=== PATIENT | female | born 1950 | race Caucasian/White ===

== ENCOUNTER 2022-04-10 13:49 | Inpatient (IN) | payer MEDICARE, OTHER ==
[~2022-04-10] VITALS: Ht 162.6 cm; Wt 64.0 kg
[2022-04-10] MEDS ORDERED: IV NS 0.9% 1,000 ML IV ONE (14:30)
--- NOTE | 2022-04-10 14:30 | NUR ---
I [phone]
--- NOTE | 2022-04-10 15:00 | NUR ---
PHLEB AT BEDSIDE FOR BLOOD DRAW
[2022-04-10 15:08] LABS: BASOPHILS % (AUTO) 0.2 % (0.0-2.0); EOSINOPHILS % (AUTO) 0.2 % (0.0-6.0); HEMATOCRIT 31 % (33-45); HEMOGLOBIN 9.7 g/dL (11.5-14.8); LYMPHOCYTES # (AUTO) 0.4 K/uL (0.8-4.8); LYMPHOCYTES % (AUTO) 7.7 % (20.0-44.0); MEAN CORPUSCULAR HGB CONC 32 g/dl (31.0-36.0); MEAN CORPUSCULAR VOLUME 95 fL (82-100); MONOCYTES # (AUTO) 0.3 K/uL (0.1-1.30); MONOCYTES % (AUTO) 5.8 % (2.0-12.0); NEUTROPHILS # (AUTO) 4.7 K/uL (1.8-8.9); NEUTROPHILS % (AUTO) 86.1 % (43.0-81.0); PLATELET COUNT (AUTO) 124 K/uL (150-450); RED BLOOD CELL COUNT(AUTO) 3.25 MIL/uL (4.0-5.2); WHITE BLOOD COUNT (AUTO) 5.4 K/uL (4.3-11.0)
[2022-04-10 15:18] LABS: CARBON DIOXIDE 35 mmol/L (21-32); CHLORIDE 104 mmol/L (98-107); CREATININE 1.1 mg/dL (0.6-1.3); GLUCOSE 99 mg/dL (74-106); SODIUM SERUM 139 mmol/L (136-145); UREA NITROGEN, BLOOD 26 mg/dL (7-18)
[2022-04-10 15:22] LABS: CALCIUM, SERUM 13.2 mg/dL (8.5-10.1)
[2022-04-10 15:37] LABS: ALANINE AMINOTRANSFERASE 17 U/L (12-78); ALBUMIN 2.7 g/dL (3.4-5.0); ALKALINE PHOSPHATASE 83 U/L (46-116); ASPARTATE AMINOTRANSFERASE 27 U/L (15-37); BILIRUBIN,TOTAL 0.4 mg/dL (0.2-1.0); TOTAL PROTEIN, SERUM 6.6 g/dL (6.4-8.2)
--- NOTE | 2022-04-10 15:54 | NUR ---
CALLED DR. ARIEL BRADLEY SPEAKING WITH DAUGHTER
[2022-04-10] MEDS ORDERED: ZINC1CAP3 PO (16:08)
[2022-04-10] MEDS ORDERED: MELO-107 PO (16:08)
[2022-04-10] MEDS ORDERED: MAGN400T26 PO (16:08)
[2022-04-10] MEDS ORDERED: LINA145C PO (16:08)
[2022-04-10] MEDS ORDERED: ASPI-1420 PO (16:08)
[2022-04-10] MEDS ORDERED: TRAM50TA2 PO (16:08)
[2022-04-10] MEDS ORDERED: ISOS30TA86 PO (16:08)
[2022-04-10] MEDS ORDERED: SPIR25TA6 PO (16:08)
[2022-04-10] MEDS ORDERED: DEXL60CA3 PO (16:08)
[2022-04-10] MEDS ORDERED: AZIT250T13 PO (16:08)
[2022-04-10] MEDS ORDERED: LISI10TA29 PO (16:08)
[2022-04-10] MEDS ORDERED: METO25TA4 PO (16:08)
[2022-04-10] MEDS ORDERED: AMYL1CAP58 PO (16:08)
[2022-04-10] MEDS ORDERED: BUME2TAB7 PO (16:08)
[2022-04-10] MEDS ORDERED: ICOS1CAP PO (16:08)
[2022-04-10] MEDS ORDERED: ERGO500093 PO (16:08)
--- NOTE | 2022-04-10 16:37 | NUR ---
MOVE SHEET SUBMITTED.
--- NOTE | 2022-04-10 17:31 | NUR ---
[facility] CALLED FOOT SETTER PAGED.
--- NOTE | 2022-04-10 18:02 | NUR ---
ROOM 107
--- NOTE | 2022-04-10 18:07 | NUR ---
RAULITO BALLARD, UNABLE TO TAKE REPORT AT THIS TIME. WILL CALL BACK
--- NOTE | 2022-04-10 18:29 | NUR ---
PT REPORT GIVEN TO RAULITO VERAS.
[2022-04-10] MEDS ORDERED: MAG HYDROX/AL HYDROX/SIMETH 30 ML UDC PO PRN (19:30)
[2022-04-10] MEDS ORDERED: HYDROCODONE/APAP 5/325MG TABLET PO PRN (19:30)
[2022-04-10] MEDS ORDERED: ONDANSETRON HCL/PF 4 MG/2 ML VIAL IVP PRN (19:30)
[2022-04-10] MEDS ORDERED: MAGNESIUM HYDROXIDE 30 ML UDC PO PRN (19:30)
--- NOTE | 2022-04-10 19:46 | NUR ---
ROOM 107
[2022-04-10 20:27] LABS: C-REACTIVE PROTEIN 13.1 mg/dL (0.0-0.9)
--- NOTE | 2022-04-10 20:31 | NUR ---
PUSHED PATIENT TO RM 107-T
[2022-04-10 20:55] VITALS: BP 114/89
--- NOTE | 2022-04-10 20:55 | NUR ---
2054 ADMITTED FROM ER 71 YEAR OLD FEMALE VIA BED WITH DX OF DEHYDRATION AND COVID. PATIENT AWAKE ALERT AND ORIENTED X4. CITIZEN OF [place] SPEAKING BUT ABLE TO SPEAK SOME [place]ONG[place]. ABLE TO AMBULATE TO BED WITH ASSIST. DENIES PAIN WHEN ASKED. PLACED ON O2 2LITER PER NC. O2 SAT 97%. ADMISSION CARE RENDERED. SKIN ASSESSMENT DONE. NO SKIN BREAKDOWN NOTED. CONNECTED TO LINE WALKER. SR WITH ECTOPIES. HR 70S. KEPT PATIENT CLEAN AND COMFORTABLE. CALL LIGHT PLACED WITHIN REACH AND REMINDED HER TO CALL FOR ASSISTANCE.
--- NOTE | 2022-04-10 21:25 | NUR ---
2124 SPOKE WITH PATIENT'S DAUGHTER MIRNA AND UPDATED HER ON PATIENT'S CONDITION AND POC WITH ALL OF HER QUESTIONS ANSWERED.
[2022-04-10] MEDS ORDERED: CEFTRIAXONE 1 G VIAL ONE (21:47)
[2022-04-10] MEDS ORDERED: AZITHROMYCIN 500 MG VIAL ONE (21:47)
[2022-04-10] MEDS: IV NS 0.9% 1,000 ML IV PRN (22:13)
[2022-04-10] MEDS: CEFTRIAXONE 1 G in IV D5W 50 ML IV SCH (22:17)
[2022-04-10] MEDS: AZITHROMYCIN 500 MG in IV D5W 250 ML IV SCH (22:21)
[2022-04-10] MEDS: ENOXAPARIN SODIUM 40 MG/0.4 ML DISP.SYRIN SQ SCH (22:34)
[2022-04-11] VITALS: BP 107/59
[2022-04-11 04:00] VITALS: BP 118/54
--- NOTE | 2022-04-11 06:40 | NUR ---
RN CLOSING NOTES: PT SLEEPING IN BED, BUT EASILY AROUSABLE, AWAKE, ALERT/ORIENTED X4 AND VERBALLY RESPONSIVE. ON O2 AT 2L/MIN VIA N/C AND PT TOLERATED WELL. O2 SAT 95%. IV ACCESS RFA#18G INTACT AND PATENT. NO S/S OF INFILTRATIONS. RUNNING NS AT 75CC/HR. NO C/O PAIN OR DISCOMFORT. NO ACUTE DISTRESS. ABLE TO GO TO BATHROOM WITH ASSIST. ALL DUE MEDS GIVEN ORDERED. ALL SAFETY MEASURES IN PLACE. SIDE RAILS UP X2, BED IN LOWEST POSITION AND LOCKED. PLACE CALL LIGHT WITH IN REACH. WILL ENDORSE TO MORNING SHIFT NURSE
[2022-04-11 07:10] LABS: BASOPHILS % (AUTO) 0.1 % (0.0-2.0); EOSINOPHILS % (AUTO) 0.7 % (0.0-6.0); HEMATOCRIT 30 % (33-45); HEMOGLOBIN 9.5 g/dL (11.5-14.8); LYMPHOCYTES # (AUTO) 0.5 K/uL (0.8-4.8); LYMPHOCYTES % (AUTO) 12.2 % (20.0-44.0); MEAN CORPUSCULAR HGB CONC 32 g/dl (31.0-36.0); MEAN CORPUSCULAR VOLUME 96 fL (82-100); MONOCYTES # (AUTO) 0.4 K/uL (0.1-1.30); MONOCYTES % (AUTO) 9.6 % (2.0-12.0); NEUTROPHILS # (AUTO) 3.3 K/uL (1.8-8.9); NEUTROPHILS % (AUTO) 77.4 % (43.0-81.0); PLATELET COUNT (AUTO) 112 K/uL (150-450); RED BLOOD CELL COUNT(AUTO) 3.15 MIL/uL (4.0-5.2); WHITE BLOOD COUNT (AUTO) 4.2 K/uL (4.3-11.0)
--- NOTE | 2022-04-11 07:19 | NUR ---
RN OPENING NOTES: PT SLEEPING IN BED, BUT EASILY AROUSABLE, AWAKE, ALERT/ORIENTED X4 AND VERBALLY RESPONSIVE. ON O2 AT 2L/MIN VIA N/C AND PT TOLERATED WELL. O2 SAT 95%. IV ACCESS RFA#18G INTACT AND PATENT. NO S/S OF INFILTRATIONS. RUNNING NS AT 75CC/HR. NO C/O PAIN OR DISCOMFORT. NO ACUTE DISTRESS. . ALL SAFETY MEASURES IN PLACE. SIDE RAILS UP X2, BED IN LOWEST POSITION AND LOCKED. PLACE CALL LIGHT WITH IN REACH.
[2022-04-11 07:33] LABS: MAGNESIUM 1.5 mg/dL (1.8-2.4); PHOSPHORUS 3.9 mg/dL (2.5-4.9); POTASSIUM 4.6 mmol/L (3.5-5.1)
[2022-04-11 08:00] VITALS: BP 114/48
[2022-04-11] MEDS: PANTOPRAZOLE 40 MG TABLET.DR PO SCH (08:10)
[2022-04-11] MEDS: ENOXAPARIN SODIUM 40 MG/0.4 ML DISP.SYRIN SQ SCH ×2 (08:11→08:16)
[2022-04-11 08:20] LABS: CALCIUM, SERUM 13.2 mg/dL (8.5-10.1)
[2022-04-11] MEDS ORDERED: MAGNESIUM OXIDE 400 MG TABLET PO ONE (11:00)
[2022-04-11 12:00] VITALS: BP 106/62
--- NOTE | 2022-04-11 12:10 | NUR ---
RN NOTE PATIENT S02 SAT NOTED TO BE 92% ON 2L NC. PATIENT IN HIGH FOWLERS POSITION O2 INCREASED TO 4L PATIENT SAT 96%.
[2022-04-11] MEDS: DEXAMETHASONE SOD PHOSPHATE 10 MG/ML VIAL IV SCH (13:46)
[2022-04-11 16:00] VITALS: BP 100/44
[2022-04-11] MEDS ORDERED: CALCITONIN,SALMON INJ 400 UNITS/2 ML VIAL SQ SCH (17:00)
[2022-04-11] MEDS: CEFTRIAXONE 1 G in IV D5W 50 ML IV SCH (18:40)
--- NOTE | 2022-04-11 18:44 | NUR ---
RN CLOSING NOTES: PT SLEEPING IN BED, BUT EASILY AROUSABLE, AWAKE, ALERT/ORIENTED X4 AND VERBALLY RESPONSIVE. ON O2 AT 2L/MIN VIA N/C AND PT TOLERATED WELL. O2 SAT 95%. IV ACCESS RFA#18G INTACT AND PATENT. NO S/S OF INFILTRATIONS. RUNNING NS AT 75CC/HR. NO C/O PAIN OR DISCOMFORT. NO ACUTE DISTRESS. ABLE TO GO TO BATHROOM WITH ASSIST. ALL DUE MEDS GIVEN ORDERED. ALL SAFETY MEASURES IN PLACE. SIDE RAILS UP X2, BED IN LOWEST POSITION AND LOCKED. PLACE CALL LIGHT WITH IN REACH. WILL ENDORSE TO ASSISTANT ART DIRECTOR NURSE
--- NOTE | 2022-04-11 19:30 | NUR ---
RN OPENING NOTES RECEIVED PT LYING IN BED ASLEEP, EASY TO AROUSE. A/O X4. NOT IN APPARENT DISTRESS. DENIES PAIN OR DISCOMFORT AT THIS TIME. BREATHING EVEN AND NON-LABORED. HAS O2 AT 4LPM VIA NASAL CANULA. HAS RIGHT FOREARM IV ACCESS #18G WITH NS RUNNING AT 75 ML/HR. NO S/S OF INFILTRATION NOTED. SAFETY MEASURES IN PLACE. WILL CONTINUE PLAN OF CARE.
[2022-04-11] MEDS: AZITHROMYCIN 500 MG in IV D5W 250 ML IV SCH (19:33)
[2022-04-11 20:00] VITALS: BP 96/41
[2022-04-12] VITALS: BP 104/40
[2022-04-12 04:00] VITALS: BP 102/55
[2022-04-12 06:50] LABS: BASOPHILS % (AUTO) 0.1 % (0.0-2.0); HEMATOCRIT 29 % (33-45); HEMOGLOBIN 9.1 g/dL (11.5-14.8); LYMPHOCYTES # (AUTO) 0.3 K/uL (0.8-4.8); LYMPHOCYTES % (AUTO) 11.1 % (20.0-44.0); MEAN CORPUSCULAR HGB CONC 32 g/dl (31.0-36.0); MEAN CORPUSCULAR VOLUME 95 fL (82-100); MONOCYTES # (AUTO) 0.2 K/uL (0.1-1.30); MONOCYTES % (AUTO) 9.2 % (2.0-12.0); NEUTROPHILS % (AUTO) 79.6 % (43.0-81.0); PLATELET COUNT (AUTO) 122 K/uL (150-450); RED BLOOD CELL COUNT(AUTO) 3.03 MIL/uL (4.0-5.2); WHITE BLOOD COUNT (AUTO) 2.6 K/uL (4.3-11.0)
--- NOTE | 2022-04-12 07:21 | NUR ---
RN CLOSING NOTES PT LYING IN BED ASLEEP, EASY TO AROUSE. A/O X4. NO SOB OR . ON O2 AT 4LPM VIA NASAL CANULA. NOT IN ACUTE DISTRESS. NO C/O PAIN OR DISCOMFORT. AFEBRILE. ON TELE MONITOR READING SINUS BRADYCARDIA WITH BBB AND PVC AT 45 BPM. HAS RIGHT FOREARM IV ACCESS #18G WITH NS RUNNING AT 75 ML/HR. AMBULATORY W/ ASSISTANCE. ALL NEEDS ATTENDED. SAFETY MEASURES IN PLACE: BED LOW AND LOCKED, SIDE RAILS UP X2, CALL LIGHT WITHIN REACH.
--- NOTE | 2022-04-12 07:22 | NUR ---
RN OPENING NOTES: PT SLEEPING IN BED, BUT EASILY AROUSABLE, AWAKE, ALERT/ORIENTED X4 AND VERBALLY RESPONSIVE. ON O2 AT 4L/MIN VIA N/C AND PT TOLERATED WELL.. IV ACCESS RFA#18G INTACT AND PATENT. NO S/S OF INFILTRATIONS. RUNNING NS AT 75CC/HR. NO C/O PAIN OR DISCOMFORT. NO ACUTE DISTRESS. . ALL SAFETY MEASURES IN PLACE. SIDE RAILS UP X2, BED IN LOWEST POSITION AND LOCKED. PLACE CALL LIGHT WITH IN REACH.
[2022-04-12 07:40] LABS: ALBUMIN 2.1 g/dL (3.4-5.0); BILIRUBIN,TOTAL 0.2 mg/dL (0.2-1.0); CREATININE 0.8 mg/dL (0.6-1.3); MAGNESIUM 1.7 mg/dL (1.8-2.4); TOTAL PROTEIN, SERUM 5.6 g/dL (6.4-8.2)
[2022-04-12 07:56] LABS: CALCIUM, SERUM 13.6 mg/dL (8.5-10.1)
[2022-04-12 08:00] VITALS: BP 106/52
[2022-04-12] MEDS: PANTOPRAZOLE 40 MG TABLET.DR PO SCH (08:15)
[2022-04-12] MEDS: DEXAMETHASONE SOD PHOSPHATE 10 MG/ML VIAL IV SCH (08:16)
[2022-04-12] MEDS: ENOXAPARIN SODIUM 40 MG/0.4 ML DISP.SYRIN SQ SCH (08:16)
[2022-04-12] MEDS ORDERED: MAGNESIUM OXIDE 400 MG TABLET PO ONE (10:00)
[2022-04-12] MEDS: IV NS 0.9% 1,000 ML IV PRN (11:32)
--- NOTE | 2022-04-12 11:57 | NUR ---
RN NOTE TRANSFERRED CARE TO JESÚS CABEZAS
[2022-04-12 12:00] VITALS: BP 116/52
[2022-04-12 16:00] VITALS: BP 102/60
--- NOTE | 2022-04-12 18:25 | NUR ---
RN note Patient is in bed, alertb , oriented times 3, ambulates with assistance , bowel and urine continent .Patient is on O2 4l via n/c , breathing un labored , no sighs of distress. All meds are administered , Patient has RFA 18 G saline lock , NS running at 75 ml /hr. Skin around the line intact.Patient urinated 4 times , no BM. Patient has SB heart rate 45-55. Valles any pain or discomfort . Bed is at lowest position . Bed side rails are up . Call light within reach
[2022-04-12] MEDS: CEFTRIAXONE 1 G in IV D5W 50 ML IV SCH (19:42)
[2022-04-12 20:00] VITALS: BP 97/52
--- NOTE | 2022-04-12 20:00 | NUR ---
telemarketing supervisor OPENING NOTES: PTS IN BED, AWAKE, ALERT/ORIENTED X4 AND VERBALLY RESPONSIVE. ON O2 AT 4L/MIN VIA N/C SATING 97%.. IV ACCESS RFA#18G INTACT AND PATENT. NO S/S OF INFILTRATIONS. RUNNING NS AT 75CC/HR.INFUSING WELL , CONTINUE ON IV ATB ORDERED . NO ASE NOTED , NO C/O PAIN OR DISCOMFORT. NO ACUTE DISTRESS. .ALL NEEDS ATTENDED TOO CALL LIGHT WITHIN REACH. ALL SAFETY MEASURES IN PLACE. SIDE RAILS UP X2, BED IN LOWEST POSITION AND LOCKED. PLACE CALL LIGHT WITH IN REACH.
[2022-04-12] MEDS: AZITHROMYCIN 500 MG in IV D5W 250 ML IV SCH (20:11)
[2022-04-13] VITALS: BP 132/69
[2022-04-13 04:00] VITALS: BP 111/59
[2022-04-13 06:42] LABS: BASOPHILS % (AUTO) 0.1 % (0.0-2.0); EOSINOPHILS % (AUTO) 0.2 % (0.0-6.0); HEMATOCRIT 30 % (33-45); HEMOGLOBIN 9.5 g/dL (11.5-14.8); LYMPHOCYTES # (AUTO) 0.4 K/uL (0.8-4.8); LYMPHOCYTES % (AUTO) 9.1 % (20.0-44.0); MEAN CORPUSCULAR HGB CONC 32 g/dl (31.0-36.0); MEAN CORPUSCULAR VOLUME 96 fL (82-100); MONOCYTES # (AUTO) 0.3 K/uL (0.1-1.30); MONOCYTES % (AUTO) 7.5 % (2.0-12.0); NEUTROPHILS # (AUTO) 3.6 K/uL (1.8-8.9); NEUTROPHILS % (AUTO) 83.1 % (43.0-81.0); PLATELET COUNT (AUTO) 138 K/uL (150-450); RED BLOOD CELL COUNT(AUTO) 3.12 MIL/uL (4.0-5.2); WHITE BLOOD COUNT (AUTO) 4.3 K/uL (4.3-11.0)
--- NOTE | 2022-04-13 06:54 | NUR ---
electrician telephone notes Pts remains on ivf ns at 75cc/hr pts is comfortable in bed no sob no distress noted pts remains on 4 liters of 02 via nc all needs attended too call light within reach will endorse to rn day shift for continuity of care.
--- NOTE | 2022-04-13 07:31 | NUR ---
RN OPENING NOTE RECIEVED PATIENT REPORT FROM NIGHTSHIFT RN. PATIENT IS AWAKE SITTING UP IN BED. ON SUPPLEMENTAL OXYGEN VIA NASAL CANNULA RUNNING AT 4 LITERS PER MINUTE, BREATHING EVENLY AND UNLABORED. ATTACHED TO EXTERNAL WOVEN WOOD SHADE ASSEMBLER READING SINUS BRANDT WITH HEART RATE IN THE 40S, NO SIGNS OF DISTRESS NOTED. SKIN IS INTACT. IV ACCESS NOTED ON RIGHT FOREARM 18 GAUGE WITH NORMAL SALINE RUNNING AT 75 MLS/HR. CALL LIGHT IS WITHIN REACH, BED IN LOWEST POSITION, SIDE RAILS UP. WILL CONTINUE PLAN OF CARE AND ANTICIPATE NEEDS.
[2022-04-13 07:37] LABS: ALBUMIN 2.2 g/dL (3.4-5.0); BILIRUBIN,TOTAL 0.1 mg/dL (0.2-1.0); CREATININE 0.8 mg/dL (0.6-1.3); MAGNESIUM 1.8 mg/dL (1.8-2.4); PHOSPHORUS 3.2 mg/dL (2.5-4.9); TOTAL PROTEIN, SERUM 5.7 g/dL (6.4-8.2)
[2022-04-13 07:51] LABS: CALCIUM, SERUM 14.9 mg/dL (8.5-10.1)
[2022-04-13 08:00] VITALS: BP 124/68
[2022-04-13] MEDS: PANTOPRAZOLE 40 MG TABLET.DR PO SCH (08:05)
[2022-04-13] MEDS: ENOXAPARIN SODIUM 40 MG/0.4 ML DISP.SYRIN SQ SCH (08:05)
[2022-04-13] MEDS: DEXAMETHASONE SOD PHOSPHATE 10 MG/ML VIAL IV SCH (08:05)
[2022-04-13 12:00] VITALS: BP 117/62
[2022-04-13] MEDS ORDERED: PAMIDRONATE 90 MG in IV NS 0.9% 500 ML IV ONE (12:00)
[2022-04-13 16:00] VITALS: BP 118/63
--- NOTE | 2022-04-13 18:31 | NUR ---
RN CLOSING NOTE PATIENT IS AWAKE SITTING UP IN BED. ON SUPPLEMENTAL OXYGEN VIA NASAL CANNULA RUNNING AT 4 LITERS PER MINUTE, BREATHING EVENLY AND UNLABORED. ATTACHED TO EXTERNAL DATA CONTROL CLERK READING SINUS BRANDT WITH HEART RATE IN THE 40S, NO SIGNS OF DISTRESS NOTED. SKIN IS INTACT. IV ACCESS NOTED ON RIGHT FOREARM 18 GAUGE, PATIENT ALSO HAS LEFT UPPER ARM MIDLINE 18 GAUGE RUNNING NORMAL SALINE. CALL LIGHT IS WITHIN REACH, BED IN LOWEST POSITION, SIDE RAILS UP. ALL DUE MEDICATIONS GIVEN, KEPT CLEAN AND DRY THROUGHTOUT SHIFT. WILL ENDORSE TO NIGHTSHIFT RN FOR CONTINUATION OF CARE.
[2022-04-13 20:00] VITALS: BP 134/53
--- NOTE | 2022-04-13 20:00 | NUR ---
telecom analyst OPENING NOTES: PTS IN BED, AWAKE, ALERT/ORIENTED X4 AND VERBALLY RESPONSIVE. V/S STABLE AFEBRILE NO SOB NO DISTRESS NOTED ON O2 AT 4L/MIN VIA N/C SATING 97%. IV ACCESS JIM ML #18G INTACT AND PATENT. NO S/S OF INFILTRATIONS. RUNNING NS AT 75CC/HR.INFUSING WELL , CONTINUE ON IV ATB ORDERED . NO ASE NOTED , NO C/O PAIN OR DISCOMFORT. NO ACUTE DISTRESS. .ALL NEEDS ATTENDED TOO CALL LIGHT WITHIN REACH. ALL SAFETY MEASURES IN PLACE. SIDE RAILS UP X2, BED IN LOWEST POSITION AND LOCKED. PLACE CALL LIGHT WITH IN REACH.
[2022-04-13] MEDS: CEFTRIAXONE 1 G in IV D5W 50 ML IV SCH (20:44)
[2022-04-13] MEDS: AZITHROMYCIN 500 MG in IV D5W 250 ML IV SCH (20:52)
[2022-04-14] VITALS: BP 136/60
[2022-04-14] MEDS: IV NS 0.9% 1,000 ML IV PRN ×2 (03:49→18:57)
[2022-04-14 04:00] VITALS: BP 116/54
--- NOTE | 2022-04-14 06:24 | NUR ---
supervisor telephone answering service notes Pts in bed awake alert x4 remains on ivf ns at 75cc/hr pts is comfortable in bed no sob no distress noted pts remains on 4 liters of 02 via nc sating 96% , sinus aleisha on the monitor hr- 48 .all needs attended too call light within reach will endorse to rn day shift for continuity of care.
[2022-04-14 07:04] LABS: EOSINOPHILS % (AUTO) 0.2 % (0.0-6.0); HEMATOCRIT 29 % (33-45); HEMOGLOBIN 9.1 g/dL (11.5-14.8); LYMPHOCYTES # (AUTO) 0.4 K/uL (0.8-4.8); LYMPHOCYTES % (AUTO) 9.3 % (20.0-44.0); MEAN CORPUSCULAR HGB CONC 31 g/dl (31.0-36.0); MEAN CORPUSCULAR VOLUME 97 fL (82-100); MONOCYTES # (AUTO) 0.3 K/uL (0.1-1.30); NEUTROPHILS # (AUTO) 3.1 K/uL (1.8-8.9); NEUTROPHILS % (AUTO) 82.5 % (43.0-81.0); PLATELET COUNT (AUTO) 135 K/uL (150-450); RED BLOOD CELL COUNT(AUTO) 3.01 MIL/uL (4.0-5.2); WHITE BLOOD COUNT (AUTO) 3.8 K/uL (4.3-11.0)
--- NOTE | 2022-04-14 07:23 | NUR ---
RN OPENING NOTES RECEIVED PATIENT IN BED, AWAKE, A/O X4, VERBALLY RESPONSIVE, NO SIGNS OF ACUTE DISTRESS NOTED. ON O2 @ 4LPM VIA N/C, NO SOB NOTED. WITH LEFT UPPER ARM MIDLINE #18G, INTACT AND PATENT WITH NS @75ML/HR RUNNING. ON TELE MONITOR SHOWING SINUS BRANDT, HR @55. ISOLATION PRECAUTION OBSERVED. SAFETY MEASURE IN PLACE, BED IN LOWEST AND LOCKED POSITION, SIDE RAILS UP, CALL LIGHT PLACED WITHIN EASY REACH. WILL CONTINUE TO MONITOR PATIENT.
[2022-04-14 07:33] LABS: ALBUMIN 2.2 g/dL (3.4-5.0); BILIRUBIN,TOTAL 0.1 mg/dL (0.2-1.0); CREATININE 0.7 mg/dL (0.6-1.3); POTASSIUM 4.1 mmol/L (3.5-5.1); TOTAL PROTEIN, SERUM 5.6 g/dL (6.4-8.2)
[2022-04-14 07:47] LABS: CALCIUM, SERUM 15.1 mg/dL (8.5-10.1)
[2022-04-14 08:00] VITALS: BP 142/66
[2022-04-14] MEDS: ENOXAPARIN SODIUM 40 MG/0.4 ML DISP.SYRIN SQ SCH (08:25)
[2022-04-14] MEDS: PANTOPRAZOLE 40 MG TABLET.DR PO SCH (08:25)
[2022-04-14] MEDS: DEXAMETHASONE SOD PHOSPHATE 10 MG/ML VIAL IV SCH (08:26)
[2022-04-14 11:47] LABS: FERRITIN 1378 ng/mL (8-388)
[2022-04-14 12:00] VITALS: BP 126/58
[2022-04-14 16:00] VITALS: BP 132/70
[2022-04-14] MEDS ORDERED: REMDESIVIR (CHARGED) 200 MG, *LOADING DOSE 1 EA in IV NS 0.9% 210 ML IV ONE (16:00)
--- NOTE | 2022-04-14 18:54 | NUR ---
RN CLOSING NOTES PATIENT RESTING COMFORTABLY IN BED, A/O X4, VERBALLY RESPONSIVE, NO SIGNS OF ACUTE DISTRESS NOTED. ON O2 @ 3LPM VIA N/C, NO SOB NOTED. BREATHING EVEN AND UNLABORED. WITH LEFT UPPER ARM MIDLINE #18G, INTACT AND PATENT WITH NS @75ML/HR RUNNING. ON TELE MONITOR CURRENTLY SHOWING SINUS BRANDT, HR @57. ISOLATION PRECAUTION OBSERVED. SAFETY MEASURE IN PLACE, BED IN LOWEST AND LOCKED POSITION, SIDE RAILS UP, CALL LIGHT PLACED WITHIN EASY REACH. WILL ENDORSE TO NEXT SHIFT FOR CONTINUITY OF CARE.
--- NOTE | 2022-04-14 19:30 | NUR ---
RN OPENING NOTE RECEIVED PATIENT IN BED, AWAKE, A/O X4, VERBALLY RESPONSIVE, NO SIGNS OF ACUTE DISTRESS NOTED AT THIS. ON O2 @ 3LPM VIA N/C, TOLERATING WELL. WITH LEFT UPPER ARM MIDLINE #18G NOTED, INTACT AND PATENT RUNNING NS @75ML/HR. ON TELE MONITOR SHOWING SINUS BRANDT, HR @53. ISOLATION PRECAUTION OBSERVED. ALL SAFETY MEASURES IN PLACE, BED IN LOWEST AND LOCKED POSITION, SIDE RAILS UP, CALL LIGHT PLACED WITHIN EASY REACH. WILL CONTINUE TO MONITOR PATIENT.
[2022-04-14] MEDS: CEFTRIAXONE 1 G in IV D5W 50 ML IV SCH (19:39)
[2022-04-14 20:00] VITALS: BP 148/72
[2022-04-14] MEDS: AZITHROMYCIN 500 MG in IV D5W 250 ML IV SCH (20:10)
--- NOTE | 2022-04-14 22:15 | NUR ---
RN NOTE DUE MEDS GIVEN.
--- NOTE | 2022-04-14 23:10 | NUR ---
RN NOTE ASSISTED PT TO BATHROOM.
[2022-04-15] VITALS: BP 152/72
--- NOTE | 2022-04-15 03:30 | NUR ---
RN NOTE PT PULLED OUT JIM MIDLINE. RFA IV ACCESS UTILIZED INSTEAD.
[2022-04-15 04:00] VITALS: BP 133/73
--- NOTE | 2022-04-15 05:44 | NUR ---
foot doctor Note Pt remains on IVF ns at 75cc/hr, RFA #18g. Pt is comfortable in bed, no sob, no distress noted. Pt remains on 3 liters of 02 via nc. All needs attended to. All due meds given. Call light within reach. Will endorse to AM shift nurse for continuity of care.
--- NOTE | 2022-04-15 07:19 | NUR ---
RN OPENING NOTE RECEIVED PATIENT IN BED, AWAKE, A/O X4, VERBALLY RESPONSIVE, NO SIGNS OF ACUTE DISTRESS NOTED AT THIS. ON O2 @ 3LPM VIA N/C, TOLERATING WELL. WITH LEFT UPPER ARM RIGHT FA#18G NOTED, INTACT AND PATENT RUNNING NS @75ML/HR. ON TELE MONITOR SHOWING SINUS BRANDT, HR @53. ISOLATION PRECAUTION OBSERVED. ALL SAFETY MEASURES IN PLACE, BED IN LOWEST AND LOCKED POSITION, SIDE RAILS UP, CALL LIGHT PLACED WITHIN EASY REACH
[2022-04-15 07:28] LABS: ALBUMIN 2.3 g/dL (3.4-5.0); BILIRUBIN,TOTAL 0.1 mg/dL (0.2-1.0); CREATININE 0.6 mg/dL (0.6-1.3); MAGNESIUM 1.4 mg/dL (1.8-2.4); PHOSPHORUS 1.4 mg/dL (2.5-4.9); POTASSIUM 3.6 mmol/L (3.5-5.1); TOTAL PROTEIN, SERUM 5.7 g/dL (6.4-8.2)
[2022-04-15 07:31] LABS: CALCIUM, SERUM 13.5 mg/dL (8.5-10.1)
[2022-04-15 08:00] VITALS: BP 142/71
[2022-04-15] MEDS: DEXAMETHASONE SOD PHOSPHATE 10 MG/ML VIAL IV SCH (08:36)
[2022-04-15] MEDS: PANTOPRAZOLE 40 MG TABLET.DR PO SCH (08:36)
[2022-04-15] MEDS: ENOXAPARIN SODIUM 40 MG/0.4 ML DISP.SYRIN SQ SCH (08:49)
[2022-04-15 10:12] LABS: EOSINOPHILS % (AUTO) 0.2 % (0.0-6.0); HEMATOCRIT 32 % (33-45); LYMPHOCYTES # (AUTO) 0.2 K/uL (0.8-4.8); MEAN CORPUSCULAR HGB CONC 32 g/dl (31.0-36.0); MEAN CORPUSCULAR VOLUME 97 fL (82-100); MONOCYTES # (AUTO) 0.3 K/uL (0.1-1.30); MONOCYTES % (AUTO) 8.9 % (2.0-12.0); NEUTROPHILS # (AUTO) 3.3 K/uL (1.8-8.9); NEUTROPHILS % (AUTO) 84.9 % (43.0-81.0); PLATELET COUNT (AUTO) 138 K/uL (150-450); RED BLOOD CELL COUNT(AUTO) 3.26 MIL/uL (4.0-5.2); WHITE BLOOD COUNT (AUTO) 3.9 K/uL (4.3-11.0)
[2022-04-15 12:00] VITALS: BP 133/78
[2022-04-15] MEDS: Magnesium 1GM/D5W 100ML PREMIX 100 ML IV SCH ×4 (12:05→15:39)
[2022-04-15] MEDS: IV NS 0.9% 1,000 ML IV PRN (14:32)
[2022-04-15 16:00] VITALS: BP 148/71
[2022-04-15] MEDS: REMDESIVIR (CHARGED) 100 MG in IV NS 0.9% 230 ML IV SCH (16:49)
[2022-04-15] MEDS: ENSURE ENLIVE 237 ML LIQUID (VANILLA) PO SCH (17:00)
--- NOTE | 2022-04-15 17:25 | NUR ---
RN NOTE PATIENT NOTED TO HAVE HOME MEDICATIONS TO BE RECONCILED INFORMED DR MARY
[2022-04-15] MEDS ORDERED: K PHOS NEUTRAL 250 MG TABLET PO ONE (18:00)
[2022-04-15] MEDS: CEFTRIAXONE 1 G in IV D5W 50 ML IV SCH (18:30)
--- NOTE | 2022-04-15 18:41 | NUR ---
RN CLOSING NOTES PATIENT RESTING COMFORTABLY IN BED, A/O X4, VERBALLY RESPONSIVE, NO SIGNS OF ACUTE DISTRESS NOTED. ON O2 @ 3LPM VIA N/C, NO SOB NOTED. BREATHING EVEN AND UNLABORED. WITH RIGHT UPPER ARM MIDLINE #18G, INTACT AND PATENT WITH NS @75ML/HR RUNNING. ON TELE MONITOR . ISOLATION PRECAUTION OBSERVED. SAFETY MEASURE IN PLACE, BED IN LOWEST AND LOCKED POSITION, SIDE RAILS UP, CALL LIGHT PLACED WITHIN EASY REACH. WILL ENDORSE TO NEXT SHIFT FOR CONTINUITY OF CARE.
[2022-04-15 20:00] VITALS: BP 141/77
[2022-04-16] VITALS (7 sets, daily range): BP systolic 127–141; BP diastolic 63–82
[2022-04-16 06:26] LABS: BASOPHILS % (AUTO) 0.1 % (0.0-2.0); HEMATOCRIT 31 % (33-45); HEMOGLOBIN 10.3 g/dL (11.5-14.8); LYMPHOCYTES # (AUTO) 0.4 K/uL (0.8-4.8); LYMPHOCYTES % (AUTO) 8.2 % (20.0-44.0); MEAN CORPUSCULAR HGB CONC 33 g/dl (31.0-36.0); MEAN CORPUSCULAR VOLUME 95 fL (82-100); MONOCYTES # (AUTO) 0.3 K/uL (0.1-1.30); MONOCYTES % (AUTO) 7.6 % (2.0-12.0); NEUTROPHILS # (AUTO) 3.7 K/uL (1.8-8.9); NEUTROPHILS % (AUTO) 83.1 % (43.0-81.0); PLATELET COUNT (AUTO) 160 K/uL (150-450); RED BLOOD CELL COUNT(AUTO) 3.32 MIL/uL (4.0-5.2); WHITE BLOOD COUNT (AUTO) 4.5 K/uL (4.3-11.0)
[2022-04-16 06:42] LABS: ALBUMIN 2.3 g/dL (3.4-5.0); BILIRUBIN,TOTAL 0.1 mg/dL (0.2-1.0); CALCIUM, SERUM 12.3 mg/dL (8.5-10.1); CREATININE 0.6 mg/dL (0.6-1.3); PHOSPHORUS 2.5 mg/dL (2.5-4.9); POTASSIUM 3.9 mmol/L (3.5-5.1); TOTAL PROTEIN, SERUM 5.8 g/dL (6.4-8.2)
--- NOTE | 2022-04-16 07:34 | NUR ---
tele note patient is alert and oriented x4.patient is resting comfortably in bed. patient is on 3L nasal cannula. patient skin is intact. Patient is sinus aleisha on tele monitor. patient has right upper arm IV. all needs attended. will continue to monitor throughout shift.
[2022-04-16] MEDS: PANTOPRAZOLE 40 MG TABLET.DR PO SCH (07:48)
[2022-04-16] MEDS: DEXAMETHASONE SOD PHOSPHATE 10 MG/ML VIAL IV SCH (08:08)
[2022-04-16] MEDS: ENOXAPARIN SODIUM 40 MG/0.4 ML DISP.SYRIN SQ SCH (08:18)
[2022-04-16] MEDS: ENSURE ENLIVE 237 ML LIQUID (VANILLA) PO SCH ×2 (08:19→16:16)
--- NOTE | 2022-04-16 10:21 | NUR ---
UTILITY LINEMAN NOTE SPOKE WITH FAMILY UPDATED PATIENT CONDITION
[2022-04-16] MEDS: IV NS 0.9% 1,000 ML IV PRN (10:27)
--- NOTE | 2022-04-16 10:48 | NUR ---
tele rnnote assisted to br able to urinate ,well keep clean dry all needs attended
--- NOTE | 2022-04-16 12:40 | NUR ---
outbound telemarketer note having lunch able to eat self ,call light within reach
--- NOTE | 2022-04-16 13:07 | NUR ---
BOTTLE LABELER NOTE AT BEDSIDE HAS SEEN PATIENT. MD AWARE OF CT CHEST RESULT.PATIENT ON 3L NASAL CANNULA.NO SIGNS OF SOB. AMBULATORY TO BATHROOM WITH ASSISTANCE. SPOKE WITH DAUGHTER MIRNA AND UPDATED CONDITION
--- NOTE | 2022-04-16 14:04 | NUR ---
SUPERVISOR ENGINE ASSEMBLY NOTE REPORTED TO THAT PATIENT HAS OCCASIONAL COUGHING. WILL ORDER MISTYSIN. WILL FOLLOW UP Addendum: 04/16/22 at 1405 by BITA NOLASCO RN ROUNDS MADE.ALL NEEDS ATTENDED. PATIENT RESTING COMFORTABLY
[2022-04-16] MEDS: GUAIFENESIN/D-METHORPHAN HB 5 ML UDC PO PRN ×2 (14:28→14:41)
[2022-04-16] MEDS ORDERED: TRAMADOL HCL 50 MG TABLET PO PRN (15:00)
[2022-04-16] MEDS: REMDESIVIR (CHARGED) 100 MG in IV NS 0.9% 230 ML IV SCH (15:40)
[2022-04-16 16:07] LABS: *SPE A/G RATIO 0.8 (0.7-1.7); *SPE ALPHA-1-GLOBULIN 0.4 g/dL (0.0-0.4); *SPE ALPHA-2-GLOBULIN 0.7 g/dL (0.4-1.0); *SPE M-SPIKE Not Observed g/dL (Not Observed)
[2022-04-16] MEDS: MAGNESIUM OXIDE 400 MG TABLET PO SCH (16:15)
[2022-04-16] MEDS ORDERED: Medication Not On Formulary EA (Icosapent Ethyl (Vascepa) 1 GM) PO SCH (17:00)
[2022-04-16] MEDS ORDERED: AMYLASE/LIPASE/PROTEASE 1 CAP CAPSULE.DR PO SCH (17:00)
--- NOTE | 2022-04-16 18:31 | NUR ---
FOXING CUTTING MACHINE OPERATOR NOTE RESTING COMFORTABLY HAVING DINNER, ABLE TO EAT SELF ,ALL NEEDS ATTENDED, NO SOB NOTED AT THIS TIME, WILL CONT TO DENISDOR CLOSELY
[2022-04-16] MEDS: CEFTRIAXONE 1 G in IV D5W 50 ML IV SCH (19:47)
--- NOTE | 2022-04-16 21:22 | NUR ---
call center analyst Opening Note Pt received in bed awake, A&O x4, mainly Khmer-speaking but is able to speak little Macedonian. Pt on 3L NC, current O2sat at 94%; pt shows no s/s of resp distress, no SOB or cough, non-labored and equal breathing. Pt attached to external monitor, currently SB with HR 40. Pt noted to have DIANA midline with NS running at 75 ml/hr; midline is intact and patent, flushes easily with no resistance. Bed in lowest position, call light within reach, side rails up x2. Will continue to monitor throughout the night.
[2022-04-17] VITALS: BP 117/66
[2022-04-17] MEDS: IV NS 0.9% 1,000 ML IV PRN (00:34)
[2022-04-17 04:00] VITALS: BP 133/53
--- NOTE | 2022-04-17 04:00 | NUR ---
RN Note Obtained nasal swab specimen for COVID-19 antigen.
--- NOTE | 2022-04-17 05:07 | NUR ---
RN Note Received call from lab; pt is positive for COVID.
--- NOTE | 2022-04-17 06:15 | NUR ---
manager er Closing Notes Pt in bed, asleep but easily arousable, A&O x4, mainly Yi-speaking but is able to speak some Burmese. PT remains on NC 3L, O2sat ranged from 93%-97%. Pt showed no s/s of resp distress, no SOB, non-labored and equal breathing; pt noted to have productive cough but cough is too weak for pt to bring up sputum. Attached to external monitor, SB-SR BBB with PVCs, HR ranged from 40-60 last night. DIANA midline intact and patent with NS running at 75 ml/hr. ALl due meds administered during the night. Bed in lowest position, call light within reach, side rails up x2. Will endorse to dayshift nurse to continue care.
[2022-04-17] MEDS: ACETAMINOPHEN 325 MG TABLET PO PRN (06:41)
--- NOTE | 2022-04-17 06:42 | NUR ---
RN Note Pt complains of headache and describes pain "is not too much"; pt requests for Tylenol. Pt administered Tylenol 650 mg.
[2022-04-17 07:09] LABS: EOSINOPHILS % (AUTO) 0.3 % (0.0-6.0); HEMATOCRIT 32 % (33-45); HEMOGLOBIN 9.9 g/dL (11.5-14.8); LYMPHOCYTES # (AUTO) 0.2 K/uL (0.8-4.8); LYMPHOCYTES % (AUTO) 4.6 % (20.0-44.0); MEAN CORPUSCULAR HGB CONC 31 g/dl (31.0-36.0); MEAN CORPUSCULAR VOLUME 97 fL (82-100); MONOCYTES # (AUTO) 0.4 K/uL (0.1-1.30); MONOCYTES % (AUTO) 8.3 % (2.0-12.0); NEUTROPHILS # (AUTO) 3.9 K/uL (1.8-8.9); NEUTROPHILS % (AUTO) 86.8 % (43.0-81.0); PLATELET COUNT (AUTO) 166 K/uL (150-450); RED BLOOD CELL COUNT(AUTO) 3.29 MIL/uL (4.0-5.2); WHITE BLOOD COUNT (AUTO) 4.5 K/uL (4.3-11.0)
[2022-04-17] MEDS: PANTOPRAZOLE 40 MG TABLET.DR PO SCH (07:49)
[2022-04-17] MEDS: ENSURE ENLIVE 237 ML LIQUID (VANILLA) PO SCH ×2 (07:50→16:24)
[2022-04-17 08:00] VITALS: BP 140/68
--- NOTE | 2022-04-17 08:05 | NUR ---
RN OPENING NOTE PATIENT IN BED, AWAKE, A/O X4, VERBALLY RESPONSIVE, SPEAKS NIGERIEN, PEN RULER OPERATOR ON PHONE W FAMILY, NO SIGNS OF ACUTE DISTRESS NOTED AT THIS. ON O2 @ 3LPM VIA N/C, TOLERATING WELL. WITH LEFT UPPER ARM RIGHT FA#18G NOTED, INTACT AND PATENT RUNNING NS @75ML/HR. ON TELE MONITOR SHOWING SINUS BRANDT, HR @53. ISOLATION PRECAUTION OBSERVED. ALL SAFETY MEASURES IN PLACE, BED IN LOWEST AND LOCKED POSITION, SIDE RAILS UP, CALL LIGHT PLACED WITHIN EASY REACH Addendum: 04/17/22 at 0810 by LIANNA HWANG RN RAULITO NOTE- HR- 55
[2022-04-17 08:07] LABS: ALBUMIN 2.2 g/dL (3.4-5.0); BILIRUBIN,DIRECT 0.1 mg/dL (0.0-0.2); BILIRUBIN,TOTAL 0.2 mg/dL (0.2-1.0); CALCIUM, SERUM 11.4 mg/dL (8.5-10.1); CREATININE 0.7 mg/dL (0.6-1.3); MAGNESIUM 1.8 mg/dL (1.8-2.4); PHOSPHORUS 2.3 mg/dL (2.5-4.9); POTASSIUM 3.3 mmol/L (3.5-5.1); TOTAL PROTEIN, SERUM 5.3 g/dL (6.4-8.2)
[2022-04-17] MEDS: ASPIRIN EC 81 MG TABLET.DR PO SCH (08:51)
[2022-04-17] MEDS: ISOSORBIDE MONONITRATE (30MG) 30 MG TAB.SR.24H PO SCH (08:51)
[2022-04-17] MEDS: DEXAMETHASONE SOD PHOSPHATE 10 MG/ML VIAL IV SCH (08:51)
[2022-04-17] MEDS: ZINC SULFATE 220 MG CAPSULE PO SCH (08:51)
[2022-04-17] MEDS: MAGNESIUM OXIDE 400 MG TABLET PO SCH ×2 (08:51→16:23)
[2022-04-17] MEDS: SPIRONOLACTONE 25 MG TABLET PO SCH (08:51)
[2022-04-17] MEDS: MELOXICAM 7.5 MG TABLET PO SCH (08:51)
[2022-04-17] MEDS: LIPASE/PROTEASE/AMYLASE 1 EACH CAPSULE.DR PO SCH ×3 (08:52→16:23)
[2022-04-17] MEDS: METOPROLOL SUCCINATE 25 MG TAB.SR.24H PO SCH (08:53)
[2022-04-17] MEDS: LISINOPRIL (10MG) 10 MG TABLET PO SCH (08:53)
[2022-04-17] MEDS: ENOXAPARIN SODIUM 40 MG/0.4 ML DISP.SYRIN SQ SCH (08:56)
[2022-04-17] MEDS ORDERED: LINACLOTIDE 145 MCG PO SCH (09:00)
[2022-04-17] MEDS: BUMETANIDE (1 MG) 1 MG TABLET PO SCH (09:10)
--- NOTE | 2022-04-17 09:10 | NUR ---
RN NOTE- BUMEX WOULDN'T SCAN. ADMINISTERED
[2022-04-17 12:00] VITALS: BP 111/64
[2022-04-17] MEDS ORDERED: POTASSIUM CHLORIDE 20 MEQ TAB.PRT.SR PO SCH (13:30)
--- NOTE | 2022-04-17 13:39 | NUR ---
RN NOTE- SPOKE W FAMILY TURNTABLE ENGINEER . EXPLAINED MEDS TO PT AND FAMILY. WEANING OFF O2. PT AT 2LPM VIA NC NOW. SATS AT 94%. COMFORTABLE. NO RESP DISTRESS.
[2022-04-17] MEDS: REMDESIVIR (CHARGED) 100 MG in IV NS 0.9% 230 ML IV SCH (15:53)
[2022-04-17 16:00] VITALS: BP 117/66
[2022-04-17] MEDS ORDERED: K PHOS NEUTRAL 250 MG TABLET PO ONE (16:30)
--- NOTE | 2022-04-17 18:55 | NUR ---
RN CLOSING NOTE PATIENT IN BED, AWAKE, A/O X4, VERBALLY RESPONSIVE, SPEAKS AFGHAN, SIGN ERECTOR ON PHONE W FAMILY, NO SIGNS OF ACUTE DISTRESS NOTED AT THIS. ON O2 @ 2LPM VIA N/C, TOLERATING WELL. WEANING DOWN. SATS AT 93%, WITH LEFT UPPER ARM RIGHT FA#18G NOTED, INTACT AND PATENT RUNNING NS @75ML/HR. vital signs stable. ISOLATION PRECAUTION OBSERVED. ALL SAFETY MEASURES IN PLACE, BED IN LOWEST AND LOCKED POSITION, SIDE RAILS UP, CALL LIGHT PLACED WITHIN EASY REACH
--- NOTE | 2022-04-17 19:15 | NUR ---
RN OPENING NOTES RECEIVED PATIENT ON BED, AWAKE, A/0 X 4, ABLE TO MAKE NEEDS KNOWN. AMBULATORY WITH ASSIST. ON NASAL CANULA@ 3LPM LPM SATING AT 96%. RESPIRATORY EVEN AND UNLABORED, NO SOB NOTED. AFEBRILE, NO S/S OF DISTRESS NOTED. PATIENT DIANA MIDLINE, FLUSHED WITH NS, NO S/S OF INFILTRATION NOTED AT SITE. RUNNING WITH NS @ 75ML/HR. ALL SAFETY MEASURE PROVIDED. BED IN LOWEST POSITION, LOCKED. BED ALARM ARMED. CONTINUE TO MONITOR.
[2022-04-17] MEDS: CEFTRIAXONE 1 G in IV D5W 50 ML IV SCH (19:57)
[2022-04-17 20:00] VITALS: BP 128/62
[2022-04-18] VITALS: BP 98/60
[2022-04-18 04:00] VITALS: BP 118/61
[2022-04-18] MEDS: IV NS 0.9% 1,000 ML IV PRN ×2 (06:07→15:16)
--- NOTE | 2022-04-18 07:10 | NUR ---
RN NOTE RECEIVED PATIENT IN BED RESTING ALERT ORIENTED X4 VERBALLY RESPONSIVE ,FRISIAN SPEAKING,ON 3L OXYGEN VIA NASAL CANNULA,O2:94% ISOLATION FOR COVID POSITIVE,IV SITE IS ON RIGHT UPPER ARM MID LINE INTACT,PATIENT ON IV HYDRATION NS 75CC/HR,SAFETY MEASURE IMPLEMENT,BED IN LOW POSITION AND LOCKED, CALL LIGHT WITHIN REACH,CONTINUE TO MONITOR.
[2022-04-18] MEDS: PANTOPRAZOLE 40 MG TABLET.DR PO SCH (07:34)
[2022-04-18] MEDS: ACETAMINOPHEN 325 MG TABLET PO PRN (07:34)
[2022-04-18] MEDS: ENSURE ENLIVE 237 ML LIQUID (VANILLA) PO SCH ×2 (07:35→17:02)
[2022-04-18 07:42] LABS: ALBUMIN 2.3 g/dL (3.4-5.0); CALCIUM, SERUM 10.9 mg/dL (8.5-10.1); CREATININE 0.7 mg/dL (0.6-1.3); MAGNESIUM 1.9 mg/dL (1.8-2.4); PHOSPHORUS 2.5 mg/dL (2.5-4.9); POTASSIUM 3.7 mmol/L (3.5-5.1); TOTAL PROTEIN, SERUM 5.5 g/dL (6.4-8.2)
[2022-04-18 07:55] LABS: BILIRUBIN,TOTAL 0.2 mg/dL (0.2-1.0)
[2022-04-18 08:00] VITALS: BP 121/54
[2022-04-18 08:33] LABS: BASOPHILS % (AUTO) 0.3 % (0.0-2.0); EOSINOPHILS % (AUTO) 0.7 % (0.0-6.0); HEMATOCRIT 32 % (33-45); HEMOGLOBIN 9.7 g/dL (11.5-14.8); LYMPHOCYTES # (AUTO) 0.3 K/uL (0.8-4.8); LYMPHOCYTES % (AUTO) 5.1 % (20.0-44.0); MEAN CORPUSCULAR HGB CONC 31 g/dl (31.0-36.0); MEAN CORPUSCULAR VOLUME 98 fL (82-100); MONOCYTES # (AUTO) 0.4 K/uL (0.1-1.30); NEUTROPHILS # (AUTO) 4.5 K/uL (1.8-8.9); NEUTROPHILS % (AUTO) 86.9 % (43.0-81.0); PLATELET COUNT (AUTO) 170 K/uL (150-450); RED BLOOD CELL COUNT(AUTO) 3.26 MIL/uL (4.0-5.2); WHITE BLOOD COUNT (AUTO) 5.1 K/uL (4.3-11.0)
[2022-04-18] MEDS: BUMETANIDE (1 MG) 1 MG TABLET PO SCH (08:41)
[2022-04-18] MEDS: MELOXICAM 7.5 MG TABLET PO SCH (08:42)
[2022-04-18] MEDS: ZINC SULFATE 220 MG CAPSULE PO SCH (08:42)
[2022-04-18] MEDS: MAGNESIUM OXIDE 400 MG TABLET PO SCH ×2 (08:42→16:20)
[2022-04-18] MEDS: LIPASE/PROTEASE/AMYLASE 1 EACH CAPSULE.DR PO SCH ×3 (08:42→16:20)
[2022-04-18] MEDS: SPIRONOLACTONE 25 MG TABLET PO SCH (08:43)
[2022-04-18] MEDS: ISOSORBIDE MONONITRATE (30MG) 30 MG TAB.SR.24H PO SCH (08:43)
[2022-04-18] MEDS: ASPIRIN EC 81 MG TABLET.DR PO SCH (08:43)
[2022-04-18] MEDS: DEXAMETHASONE SOD PHOSPHATE 10 MG/ML VIAL IV SCH (08:44)
[2022-04-18] MEDS: LISINOPRIL (10MG) 10 MG TABLET PO SCH (08:45)
[2022-04-18] MEDS: METOPROLOL SUCCINATE 25 MG TAB.SR.24H PO SCH (08:45)
[2022-04-18 08:49] LABS: ALBUMIN 2.3 g/dL (3.4-5.0); BILIRUBIN,TOTAL 0.1 mg/dL (0.2-1.0); TOTAL PROTEIN, SERUM 5.5 g/dL (6.4-8.2)
[2022-04-18] MEDS: ENOXAPARIN SODIUM 40 MG/0.4 ML DISP.SYRIN SQ SCH (08:50)
[2022-04-18] MEDS ORDERED: ERGOCALCIFEROL (VITAMIN D 2) 50,000 UNIT CAPSULE PO SCH (09:00)
[2022-04-18 12:00] VITALS: BP 117/60
[2022-04-18] MEDS: REMDESIVIR (CHARGED) 100 MG in IV NS 0.9% 230 ML IV SCH (15:51)
[2022-04-18 16:00] VITALS: BP 117/63
[2022-04-18] MEDS ORDERED: DEXA6TAB6 PO (16:24)
--- NOTE | 2022-04-18 18:36 | NUR ---
RN NOTE PATIENT WILL DISCHARGE TODAY CALLED ANI DAUGHTER IN LAW MADE AWARE.
--- NOTE | 2022-04-18 18:59 | NUR ---
RN NOTE PATIENT REMAINS ALERT ORIENTED X4 NO SOB NOT ACUTE DISTRESS NOTED,ON 3L OXYGEN VIA NASAL CANNULA, O2:97%,ALL DUE MEDS GIVEN MD ORDERED,ALL NEEDS MET.PATIENT WILL DISCHARGE HOME,WILL ENDORSE NEXT COMING SHIFT
--- NOTE | 2022-04-18 20:18 | NUR ---
D/C PACKET PREPARED AND PRINTED BY RAULITO ADAMS AND GIVEN TO THE PATIENT. IV REMOVED, NO BLEEDING NOTED.
--- NOTE | 2022-04-18 20:29 | NUR ---
PATIENT SIGNED THE PAPER THAT SHE ACKNOWLEDGED THAT SHE RECEIVED THE D/C INSTRUCTIONS AND UNDERSTANDS THEM. SIGNED PAPER ATTACHED TO THE CHART. PATIENT IS BEING PICKED UP BY AMBULANCE WITH PATIENT'S BELONGINGS AND THE D/C PACKET.
== END 2022-04-18 20:36 | disposition home or self-care (01) | DRG 177 ==
LOC: ER 13:50 → MEDSG1 20:09 → TELE1 21:28
PROC: 05HC33Z Insertion of Infusion Device into Left Basilic Vein, Percutaneous Approach (ICD-10-PCS; 2022-04-13)
PROC: XW033E5 Introduction of Remdesivir Anti-infective into Peripheral Vein, Percutaneous Approach, New Technology Group 5 (ICD-10-PCS; principal; 2022-04-14)
PROC: 05HB33Z Insertion of Infusion Device into Right Basilic Vein, Percutaneous Approach (ICD-10-PCS; 2022-04-15)
DX: U07.1 COVID-19 (principal); J12.82 Pneumonia due to coronavirus disease 2019; J96.01 Acute respiratory failure with hypoxia; E44.1 Mild protein-calorie malnutrition; D69.6 Thrombocytopenia, unspecified; I25.10 Atherosclerotic heart disease of native coronary artery without angina pectoris; E83.52 Hypercalcemia; E88.09 Other disorders of plasma-protein metabolism, not elsewhere classified; D64.9 Anemia, unspecified; I11.0 Hypertensive heart disease with heart failure; I50.9 Heart failure, unspecified; E83.42 Hypomagnesemia; M41.9 Scoliosis, unspecified; E86.0 Dehydration; R79.89 Other specified abnormal findings of blood chemistry; R39.2 Extrarenal uremia
CPT/HCPCS: 36410; 36415; 71045-TC; 71250-TC; 80048-TC; 80053-TC; 80076-TC; 82306; 82550-TC; 82728-TC; 83605-TC; 83615-TC; 83735-TC; 83970; 84100-TC; 84155; 84165; 84484-TC; 85025-TC; 85378-TC; 85610-TC; 85730-TC; 86140-TC; 87040-TC; 87081-TC; 93307-TC; 94799-TC; A4216; G0378; J0456; J0696; J1100; J1650; J2430; J3475; J7030; J7040; J7050; J7060; U0003